=== PATIENT | female | born 1990 | race Caucasian/White ===

== ENCOUNTER 2025-04-29 19:08 | Inpatient (IN) | payer MEDICAID, OTHER ==
[~2025-04-29] VITALS: Ht 175.3 cm; Wt 104.3 kg
[2025-04-29] MEDS ORDERED: LIDOCAINE 2%HCL (LOCAL ANESTH.) INJ 20ML MDV IJ PRN (20:15)
[2025-04-29] MEDS ORDERED: NALBUPHINE HCL 10 MG/1ml INJECTION IV PRN (20:15)
[2025-04-29] MEDS: NALOXONE HCL 0.4 MG/ML VIAL IV ONE (21:00)
[2025-04-29] MEDS: ePHEDrine SULFATE 50 MG/ML AMP IV ONE (21:00)
[2025-04-29 21:03] LABS: Basophils # (auto) 0.1 10 ^3/uL (0-0.2); Basophils % (auto) 0.5 % (0.0-2.0); Eosinophils # (auto) 0.1 10 ^3/uL (0-0.8); Eosinophils % (auto) 0.4 % (0.0-7.0); Hematocrit 39.4 % (36.0-46.0); Hemoglobin 13.2 g/dL (12.2-16.2); Lymphocytes # (auto) 3.1 10 ^3/uL (0.4-5.4); Lymphocytes % (auto) 24.3 % (10.0-50.0); Mean Corpuscular Hemoglobin 29.5 pg (28.0-32.0); Mean Corpuscular Hgb Conc. 33.5 g/dL (32.0-36.0); Mean Corpuscular Volume 88.1 fL (80.0-100.0); Monocytes % (auto) 7.9 % (0.0-12.0); Neutrophils # (auto) 8.6 10 ^3/uL (1.6-8.6); Neutrophils % (auto) 66.9 % (37.0-80.0); Nucleated Red Blood Cells % 0.1 %; Platelet Count (auto) 203 10^3/uL (140-450); Red Blood Cells 4.48 10^6/uL (4.0-5.20); White Blood Cell 12.8 10^3/uL (4.4-10.8)
[2025-04-29] MEDS: DERMOPLAST 60ML BOTTLE TOP PRN (21:07)
[2025-04-29] MEDS: PHISODERM TOP SOLN 240ML BTL TOP PRN (21:07)
[2025-04-29] MEDS: WITCH HAZEL-GLYCERIN PAD TOP PRN (21:07)
[2025-04-29 21:14] LABS: Alanine Aminotransferase 15 U/L (7-40); Carbon Dioxide 22 mmol/L (20-31)
[2025-04-29 21:15] LABS: Anion Gap 11 (5-15); Aspartate Aminotransferase 12 U/L (<34); BUN/Creatinine Ratio 9.7 (10.0-20.0); Bilirubin, Total 0.4 mg/dL (0.2-1.0); Blood Urea Nitrogen 6 mg/dL (9-23); Calcium 10.7 mg/dL (8.7-10.4); Chloride 107 mmol/L (98-107); Glucose 84 mg/dL (74-106); Potassium 3.9 mmol/L (3.5-5.1); Sodium 140 mmol/L (136-145); Total Protein 6.6 g/dL (5.7-8.2)
[2025-04-29 21:22] LABS: INR 0.91 (0.9-1.15); Partial Thromboplastin Time 26.5 SEC (24.5-34.5); Prothrombin Time 9.7 sec (9.3-11.8)
[2025-04-29 21:28] LABS: Alkaline Phosphatase 184 U/L (46-116)
[2025-04-29 21:31] LABS: Urine Amorphous Crystal FEW /hpf (None Seen); Urine Bacteria FEW /hpf (None Seen); Urine Blood Negative /uL (Negative); Urine Clarity Turbid (Clear); Urine Color Light-Yellow (Yellow); Urine Protein, UAD Negative (Negative); Urine Specific Gravity 1.008 (1.001-1.035); Urine Squamous Epithelial Cell FEW /hpf (<5); Urine Urobilinogen Normal (Negative); Urine WBC 2 /HPF (0-5)
[2025-04-29] MEDS: LACTATED RINGER'S 1,000 ML IV SCH (21:40)
[2025-04-29 21:46] LABS: Amphetamine Screen, Urine Neg (NEGATIVE); Barbiturate Scree,Urine Neg (NEGATIVE); Benzodiazephine Screen, Urine Neg (NEGATIVE); Cannabinoid Screen, Urine Neg (NEGATIVE); Cocaine Screen, Urine Neg (NEGATIVE); Opiate Scree,Urine Neg (NEGATIVE); Phencyclidine Screen, Urine Neg (NEGATIVE)
[2025-04-30] MEDS ORDERED: METHYLERGONOVINE MALEATE 0.2 MG/ML AMP IM PRN (00:15)
[2025-04-30] MEDS: LACT. RINGERS/OXYTOCIN 20UNITS 500 ML IV ONE ×2 (01:26→01:27)
[2025-04-30] MEDS: ROPIVACAINE HCL 200 ML ONE (01:29)
[2025-04-30] MEDS ORDERED: ONDANSETRON ODT 4 MG TAB PO PRN (01:30)
[2025-04-30 03:30] VITALS: BP 121/70; PULSE 91; RESP 16; TEMP 98.6; O2SAT 95
[2025-04-30] MEDS: IBUPROFEN 600 MG TAB PO PRN (03:44)
--- NOTE | 2025-04-30 05:44 | DVHHP2 ---
OB CC & HPI Patient Identification: : 3 Para: 1 EDC: May 12, 2025 EGA: 38+ Chief Complaints: Reason for admission: active labor Past Medical History Cardiac: No pertinent Hx Pulmonary: No pertinent Hx Central Nervous System: No pertinent Hx GI: No pertinent Hx Hemotology/Oncology: No pertinent Hx Hepatobiliary: No pertinent Hx Psychiatric: No pertinent Hx Musculoskeletal: No pertinent Hx Rheumotologic: No pertinent Hx Infectious Disease: No peritnent Hx ENT: No pertinent Hx Renal/: No pertinent Hx Endocrine: No pertinent Hx Dermatology: No pertinent Hx OB History OB History Care: Good Care Ultrasounds: Normal mid trimester US Obstetrical Complications: None Medical Complications: None Allergies: Coded Allergies: NO KNOWN ALLERGIES (Unverified , 04/29/25) Current Medications Current Medications Medications (Trade) Dose Ordered Sig/Lizandro Route PRN Reason Start Time Stop Time Status Last Admin Lactated Ringer's 1,000 ml @ 125 mls/hr Q8H IV 04/29/25 20:15 04/29/25 21:40 Nalbuphine HCl (Nubain) 10 mg Q4HP PRN IV MODERATE PAIN (4-6 PAIN SCALE) 04/29/25 20:15 Witch Mary (Tucks) 1 pad PRN PRN TOP PERINEAL AREA DISCOMFORT 04/29/25 20:15 04/29/25 21:07 Sodium Lauryl Sulfate (Phisoderm) 240 ml PRN PRN TOP PERINEAL AREA DISCOMFORT 04/29/25 20:15 04/29/25 21:07 Benzocaine (Dermoplast) 1 applic PRN PRN TOP PERINEAL AREA DISCOMFORT 04/29/25 20:15 04/29/25 21:07 Lidocaine HCl (Xylocaine) 40 ml ONCE PRN IJ PERINEAL AREA DISCOMFORT 04/29/25 20:15 Cancel Methylergonovine Maleate (Methergine) 0.2 mg Q8HP PRN IM POST HEMORRHAGE 04/30/25 00:15 05/02/25 00:14 Cancel Ibuprofen (Motrin Tablet) 600 mg Q6HP PRN PO MODERATE PAIN (4-6 PAIN SCALE) 04/30/25 01:30 04/30/25 03:44 Acetaminophen (Tylenol Tablet) 650 mg Q4HP PRN PO MILD PAIN (1-3 PAIN SCALE) 04/30/25 01:30 Ondansetron HCl (Zofran Po) 4 mg Q4HPRN PRN PO NAUSEA / VOMITING 04/30/25 01:30 Family & Social History Family/Social History Blood Type: O+ Rubella: immune RPR/VDRL: Negative GBS Status: Negative HBsAG: Negative Review of Systems Constitutional: No symptom reported Ears, Nose, & Throat: No symptom reported Eyes: No symptom reported Pulmonary/Respiratory: No symptom reported Cardiovascular: No symptom reported Gastrointestinal: No symptom reported Genitourinary: No symptom reported Musculoskeletal: No symptom reported Skin: No symptom reported Psychiatric: No symptom reported Endocrine: No symptom reported Hemotologic/Lymphatic: No symptom reported OB Admission Exam Physical Exam Vitals: Vital Signs Date Time Temp Pulse Resp B/P (MAP) Pulse Ox O2 Delivery O2 Flow Rate FiO2 04/30/25 03:45 Room Air 04/30/25 03:44 98.1 04/30/25 03:30 91 16 121/70 (87) 95 Abdomen: Gravid Extremities: Normal Reflexes: Normal Cervical Dilatation: 4cm Effacement: 75% Station: 0 Membranes: Intact Amniotic Fluid: Clear Heart Rate: 140's Accelerations: Accelerations Present Short Term Variability: Present Correspondence Transcriber Variability: Average (6-25) Contractions on Admission: < 5 Minutes Apart Intensity: Firm OB Plan Plan Admitting Diagnosis: Onset of Labor BRENDON CAMACHO DO Apr 30, 2025 05:44
--- NOTE | 2025-04-30 05:46 | LDN2 ---
Labor and Delivery Note Date 04/30/25 Age 34 3 Para 1 AB 1 EDC 05/12/2025 EGA 38+ Diagnosis Labor Vaginal Delivery: VTX Vacuum Assisted: No Placenta: Spontaneous Sex: Male Weight 7lbs 10 oz Apgars 8/9 Nuchal Cord Present: No Nuchal Cord Transected: No Amniotic Fluid: Clear Anesthesia Amaro CHIEF TECHNICIAN Epidura Episiotomy: No Extension: No Lacerations: No EBL 300cc Complications none Conditions good Trailer Chief none present BRENDON CAMACHO DO Apr 30, 2025 05:46
[2025-04-30 07:15] VITALS: BP 125/80; PULSE 79; RESP 15; TEMP 97.7; O2SAT 96
[2025-04-30 11:00] VITALS: BP 108/63; PULSE 81; RESP 18; TEMP 98.2; O2SAT 95
[2025-04-30 15:00] VITALS: BP 128/66; PULSE 79; RESP 14; TEMP 97.8; O2SAT 95
[2025-04-30 19:00] VITALS: BP 113/67; PULSE 86; RESP 18; TEMP 97.7; O2SAT 97
[2025-04-30] MEDS: ACETAMINOPHEN 325 MG TAB PO PRN (19:42)
[2025-04-30 22:58] VITALS: BP 122/67; PULSE 73; RESP 16; TEMP 97.9; O2SAT 96
[2025-04-30] MEDS ORDERED: PREN-96 PO (23:33)
[2025-04-30] MEDS ORDERED: DOCU-94 PO (23:33)
[2025-04-30] MEDS ORDERED: IBUP-1456 PO (23:33)
--- NOTE | 2025-05-01 00:28 | DVHPN2 ---
Progress Note Date Seen: May 01, 2025 Subjective S: bleeding is less, eating food without issues, denies lightheaded/dizziness, pain well controlled with oral medications, no concerns with urinating, passing flatus, no BM yet, ambulating well, well vital signs Vital Sign Date Time Temp Pulse Resp B/P (MAP) Pulse Ox O2 Delivery O2 Flow Rate FiO2 04/30/25 22:58 97.9 73 16 122/67 (85) 96 97.9 04/30/25 19:00 Room Air medications Current Medications Medications Dose Ordered Sig/Lizandro Route Start Time Stop Time Status Last Admin Dose Admin Eloy Delgadoel 1 pad PRN PRN TOP 04/29/25 20:15 04/29/25 21:07 1 PAD Sodium Lauryl Sulfate 240 ml PRN PRN TOP 04/29/25 20:15 04/29/25 21:07 240 ML Benzocaine 1 applic PRN PRN TOP 04/29/25 20:15 04/29/25 21:07 1 APPLIC Lidocaine HCl 40 ml ONCE PRN IJ 04/29/25 20:15 Cancel Methylergonovine Maleate 0.2 mg Q8HP PRN IM 04/30/25 00:15 05/02/25 00:14 Cancel Ibuprofen 600 mg Q6HP PRN PO 04/30/25 01:30 04/30/25 13:17 600 MG Acetaminophen 650 mg Q4HP PRN PO 04/30/25 01:30 04/30/25 19:42 650 MG Ondansetron HCl 4 mg Q4HPRN PRN PO 04/30/25 01:30 laboratory and microbiology Laboratory Tests 04/29/25 20:30 Test 04/29/25 20:30 Range/Units Serum Glucose 84 74-106 mg/dL Objective O: VSS Chest: heart sounds normal and lung sounds clear bilaterally Abd: soft, non-tender, fundus at U/firm/midline, active bowel sounds, no rebound or guarding Perineum: intact, no erythema/edema noted Ext: Non-tender, No edema Lochia: minimal See lab results Problems(with codes): (1) (normal spontaneous vaginal delivery) (2) Precipitous drop in hematocrit Assessment/Plan A: 34yo now PPD#1 s/p Rh+ Rubella non-immune Pain control with PO medications Bowel regimen P: D/C home today Rx sent to pharmacy MMR ordered precautions and preeclampsia warning signs reviewed F/U with [facility] office in 2 weeks Plan discussed with: Patient Visit Coding OBGYN Date of Service: May 01, 2025 Billing Provider: OTONIEL MELVIN CNM SENIOR CONSTRUCTION ESTIMATOR Common Visit Codes: [id number] INP/OBS CARE(LOW) AARON LEE STUDENTMDW May 01, 2025 00:28
--- NOTE | 2025-05-01 01:02 | DVHDS2 ---
Obstetrics Discharge Summary Obstetrics Discharge Summary Date of Admission: Apr 29, 2025 Date of Discharge: May 01, 2025 Reason For Admission: Onset of Labor Procedures: NST Intrapartum Procedures: Spontaneous vaginal deliv Procedures: Hct/date: (05/01/25), Hgb/date: (05/01/25) Operative Complicat: None Discharge Diagnosis: Term -Delivered Discharge Information: Activity (as tolerated, no heavy lifting and nothing in the vagina for 6 weeks), Diet (Routine), Medications (Rx sent), Instructions (Routine), Discharge to (Home), Accompanied by (partner), Discarge date (05/01/25) Visit Coding OBGYN Date of Service: May 01, 2025 Billing Provider: OTONIEL MELVIN CNM CORRECTIONS OFFICER Common Visit Codes: 35480-KPX/OBS DISCH DAY <30MIN AARON LEE STUDENTMDW May 01, 2025 01:01
[2025-05-01 03:10] VITALS: BP 114/67; PULSE 77; RESP 16; TEMP 98; O2SAT 96
[2025-05-01] MEDS: MEASLES, MUMPS & RUBELLA VAC(MMRII) 0.5ML SC ONE (07:00)
[2025-05-01] MEDS: DOCUSATE SOD 100 MG CAP PO ONE (07:00)
[2025-05-01 07:13] LABS: Basophils # (auto) 0.1 10 ^3/uL (0-0.2); Basophils % (auto) 0.7 % (0.0-2.0); Eosinophils # (auto) 0.1 10 ^3/uL (0-0.8); Eosinophils % (auto) 1.1 % (0.0-7.0); Hematocrit 34.8 % (36.0-46.0); Lymphocytes # (auto) 3.4 10 ^3/uL (0.4-5.4); Lymphocytes % (auto) 32.7 % (10.0-50.0); Mean Corpuscular Hemoglobin 29.9 pg (28.0-32.0); Mean Corpuscular Hgb Conc. 34.4 g/dL (32.0-36.0); Monocytes # (auto) 0.7 10 ^3/uL (0-1.3); Monocytes % (auto) 6.9 % (0.0-12.0); Neutrophils # (auto) 6.2 10 ^3/uL (1.6-8.6); Neutrophils % (auto) 58.6 % (37.0-80.0); Platelet Count (auto) 175 10^3/uL (140-450); White Blood Cell 10.5 10^3/uL (4.4-10.8)
[2025-05-01 07:23] VITALS: BP 112/78; PULSE 72; RESP 15; TEMP 98.4; O2SAT 100
== END 2025-05-01 10:50 | disposition home or self-care (01) | DRG 560 ==
LOC: LDRP 19:08 → OBSVTOIN 20:05 → EDBD 20:05 → LDRP 20:06
PROVIDERS: ADMIT Obstetrics & Gynecology; ATTEND Obstetrics & Gynecology
PROC: 10E0XZZ Delivery of Products of Conception, External Approach (ICD-10-PCS; principal; 2025-04-30)
PROC: 3E0S3BZ Introduction of Anesthetic Agent into Epidural Space, Percutaneous Approach (ICD-10-PCS; 2025-04-30)
PROC: 00HU33Z Insertion of Infusion Device into Spinal Canal, Percutaneous Approach (ICD-10-PCS; 2025-04-30)
DX: O80 Encounter for full-term uncomplicated delivery (principal); Z37.0 Single live birth; R71.0 Precipitous drop in hematocrit; Z23 Encounter for immunization; Z3A.38 38 weeks gestation of pregnancy
CPT/HCPCS: 36415; 59025; 59409; 62282; 80053; 80307; 81001; 81002; 85025; 85610; 85730; 86780; 86850; 86900; 86901; 94760; 94762; 96360; 96361; 96365; 96366; G0378; J2590

== ENCOUNTER 2025-10-29 09:35 | Inpatient (IN) | payer BC, MEDICAID ==
[~2025-10-29] VITALS: Ht 175.3 cm; Wt 100.0 kg
[~2025-10-29 09:35] MED LIST: DOCU-94 PO; IBUP-1456 PO; PREN-96 PO
--- NOTE | 2025-10-29 10:20 | ED.PDOC ---
GI ASSESSMENT HPI Comments 34-year-old female who presents to the ED with a chief complaint of blood in stool onset 1 week. Patient states she has been experiencing blood in stool with blood clots for the past week as well as epigastric pain. She is also experiencing fatigue, nausea. Denies fever, chills, vomiting, hematemesis, diarrhea, constipation, melena, dizziness, headache, chest pain, shortness of breath, dysuria, hematuria. No other symptoms or modifying factors present at this time. Chief Complaint: GI Bleed Time Seen by MD: 10:00 Reviewed Notes: Medications, Allergies Allergies: Coded Allergies: NO KNOWN ALLERGIES (Unverified , 04/29/25) Home Meds Active Scripts Vit W/ Ferrous Fumara ( One Daily) Daily Tab, 1 TAB PO DAILY, #90 TAB 3 Refills Prov:OTONIEL MELVIN [facility] 04/30/25 Docusate Sodium (Colace) 100 Mg Cap, 1 CAP PO BID PRN, #60 CAP 2 Refills Prov:OTONIEL MELVIN [facility] 04/30/25 Ibuprofen (Ibuprofen) 800 Mg Tab, 1 TAB PO TID PRN, #30 TAB Prov:CARLOSOTONIEL JOHNSON [facility] 04/30/25 Information Source: Patient Mode of Arrival: Ambulatory Timing: Weeks Duration: Since onset Prehospital treatment: None Quality: Sharp Vomitus: None Stool: Blood Streaked Severity: Moderate Recent: None Recent Hx of: None Pain Location: Epigastric Modifying Factors: Nothing Associated sign and symptoms: Nausea, Abdominal Pain, Blood in Stool Past Medical History PAST MEDICAL HISTORY: Denies Surgical History: Denies all surgeries SENIOR GRAPHIC DESIGNER History: No Pertinent SENIOR GRAPHIC DESIGNER History Family History Family History: Reviewed,noncontributory to illness, No family hx of Cancer, No family hx of DM, No family hx of Heart caden, No family hx of HTN, No family hx ofKidney caden, No family hx of Liver caden, No family hx of Lung caden, No family hx of Stroke Social History Smoker: Non-Smoker Alcohol: Denies ETOH Use Drugs: Denies Drug Use Lives In: Home Constitutional: reports: fatigue; denies: chills, diaphoresis, fever, malaise, sweats, weakness, others EENTM: denies: blurred vision, double vision, ear bleeding, ear discharge, ear drainage, ear pain, ear ringing, eye pain, eye redness, hearing loss, mouth pain, mouth swelling, nasal discharge, nose bleeding, nose congestion, nose pain, photophobia, tearing, throat pain, throat swelling, voice changes, others Respiratory: denies: cough, hemoptysis, orthopnea, SOB at rest, shortness of breath, SOB with excertion, stridor, wheezing, others Cardiovascular: denies: chest pain, dizzy spells, diaphoresis, Dyspnea on exertion, edema, irregular heart beat, left arm pain, lightheadedness, palpitations, PND, syncope, others Gastrointestinal: reports: abdominal pain, nausea, rectal bleeding; denies: abdomen distended, blood streaked bowels, constipated, diarrhea, dysphagia, difficulty swallowing, hematemesis, melena, poor appetite, poor fluid intake, rectal pain, vomiting, others Genitourinary: denies: abnormal vagina bleeding, burning, dyspareunia, dysuria, flank pain, frequency, hematuria, incontinence, pain, , vagina discharge, urgency, others Neurological: denies: dizziness, fainting, headache, left sided numbness, left sided weakness, numbness, paresthesia, pre-existing deficit, right sided numbness, right sided weakness, seizure, speech problems, tingling, tremors, weakness, others Musculoskeletal: denies: back pain, gout, joint pain, joint swelling, muscle pain, muscle stiffness, neck pain, others Integumetry: denies: bruises, change in color, change in hair/nails, dryness, laceration, lesions, lumps, rash, wounds, others Allergic/Immunocompromised: denies: Difficulty Healing, Frequent Infections, Hives, Itching, others Hematologic/Lymphatic: denies: anemia, blood clots, easy bleeding, easy bruising, swollen glands, others Endocrine: denies: excessive hunger, excessive sweating, excessive thirst, excessive urination, flushing, intolerance to cold, intolerance to heat, unexplained weight gain, unexplained weight loss, others Psychiatric: denies: anxiety, bipolar disorder, depression, hopeless, panic disorder, schizophrenia, sleepless, suicidal, others All Other Systems: Reviewed and Negative Physical Exam General Appearance: Normal HEENT: Normal ENT Inspection, Pharynx Normal, TMs Normal Neck: Full Range of Motion, Non-Tender, Normal, Normal Inspection Respiratory: Chest Non-Tender, Lungs Clear, No Accessory Muscle Use, No Respiratory Distress, Normal Breath Sounds Cardiovascular: No Edema, No JVD, No Murmur, No Gallop, Normal Peripheral Pulses, Regular Rate/Rhythm Breast Exam: Deferred Gastrointestinal: Epigastric (tenderness), No Organomegaly, Normal Bowel Sounds, Tenderness (epigastric) Genitalia: Deferred Pelvic: Deferred Rectal: Deferred Extremities: No calf tenderness, Normal capillary refill, Normal inspection, Normal range of motion, Non-tender, No pedal edema Musculoskeletal : Apperance: Normal Neurologic: Alert, applications project manager II-XII nml as Tested, No Motor Deficits, Normal Affect, Normal Mood, No Sensory Deficits Cerebellar Function: Normal Reflexes: Normal Skin: Dry, Normal Color, Warm Lymphatic: No Adenopathy Was a procedure done? Was a procedure done?: No GI differential Dx Differential Diagnosis: Gastroenteritis, GI hemorrhage, Stress Ulcer X-Ray, Labs, Meds, VS Vital Signs Date Time Temp Pulse Resp B/P (MAP) Pulse Ox O2 Delivery O2 Flow Rate FiO2 10/29/25 13:29 97.6 72 18 122/74 (90) 100 97.6 10/29/25 12:12 97.6 69 16 119/73 (88) 100 97.6 10/29/25 11:21 72 14 98 Room Air* 0 21 10/29/25 10:51 97.6 71 15 116/82 (93) 98 97.6 10/29/25 09:37 97.4 70 18 133/84 97 97.4 Lab Test 10/29/25 10:52 10/29/25 10:36 Range/Units Urine Color Light-yellow Yellow Urine Clarity Turbid H Clear Urine pH 7.0 5.0-9.0 Urine Specific [place] 1.017 1.001-1.035 Urine Protein Negative Negative Urine Ketones Negative Negative Urine Blood Negative Negative /uL Urine Nitrite Negative Negative Urine Bilirubin Negative Negative Urine Urobilinogen Normal Negative mg/dL Urine Leukocyte Esterase Negative Negative /uL Urine RBC 3 0 - 4 /hpf Urine Microscopic WBC 6 H 0-5 /HPF Urine Squamous Epithelial Cells Mod <5 /hpf Urine Bacteria None seen None Seen /hpf Urine Mucus Few None Seen Urine Glucose Normal Normal mg/dL Urine Test Negative Negative White Blood Count 9.5 4.4-10.8 10^3/uL Red Blood Count 4.64 4.0-5.20 10^6/uL Hemoglobin 14.0 12.2-16.2 g/dL Hematocrit 42.2 36.0-46.0 % Mean Corpuscular Volume 90.9 80.0-100.0 fL Mean Corpuscular Hemoglobin 30.2 28.0-32.0 pg Mean Corpuscular Hemoglobin Concent 33.3 32.0-36.0 g/dL Red Cell Distribution Width 13.5 11.8-14.3 % Platelet Count 267 140-450 10^3/uL Mean Platelet Volume 8.2 6.9-10.8 fL Neutrophils (%) (Auto) 59.8 37.0-80.0 % Lymphocytes (%) (Auto) 31.6 10.0-50.0 % Monocytes (%) (Auto) 7.1 0.0-12.0 % Eosinophils (%) (Auto) 1.0 0.0-7.0 % Basophils (%) (Auto) 0.5 0.0-2.0 % Neutrophils # (Auto) 5.7 1.6-8.6 10 ^3/uL Lymphocytes # (Auto) 3.0 0.4-5.4 10 ^3/uL Monocytes # (Auto) 0.7 0-1.3 10 ^3/uL Eosinophils # (Auto) 0.1 0-0.8 10 ^3/uL Basophils # (Auto) 0.1 0-0.2 10 ^3/uL Nucleated Red Blood Cells 0.1 % Sodium Level 140 136-145 mmol/L Potassium Level 4.1 3.5-5.1 mmol/L Chloride Level 104 98-107 mmol/L Carbon Dioxide Level 26 20-31 mmol/L Anion Gap 10 5-15 Blood Urea Nitrogen < 5 L 9-23 mg/dL Creatinine 0.66 0.550-1.02 mg/dL Glomerular Filtration Rate Calc 119 >90 mL/min BUN/Creatinine Ratio 7.6 L 10.0-20.0 Serum Glucose 84 74-106 mg/dL Calcium Level 9.7 8.7-10.4 mg/dL Current Medications Medications (Trade) Dose Ordered Sig/Lizandro Route Start Time Stop Time Status Last Admin Sodium Chloride 1,000 ml @ 1,000 mls/hr Q1H ONCE IV 10/29/25 10:30 10/29/25 11:29 DC 10/29/25 10:55 Time of 1ST Reevaluation: 10:30 Reevaluation 1ST: Unchanged Patient Education/Counseling: Diagnosis, Treatment, Prognosis Family Education/Counseling: No Family Present SEPSIS Sepsis Screen Date sepsis recognized/suspect: Oct 29, 2025 Time Sepsis recognized/suspect: 937 Recent Procedure: No On Antibiotic Therapy: No Respiratory Rate >20: No Heart Rate >90: No Temp<36 C (96.8 F) or >38.3 C: No SBP <90 or MAP <65 mmHG: No New Acute Mental Status Change: No Is the patient on CPAP, BIPAP,: No Physician Orders Ct Ab Pel With Iv Con Only (10/29/25 12:09) Vital Signs Date Time Temp Pulse Resp B/P (MAP) Pulse Ox O2 Delivery O2 Flow Rate FiO2 10/29/25 13:29 97.6 72 18 122/74 (90) 100 97.6 10/29/25 12:12 97.6 69 16 119/73 (88) 100 97.6 10/29/25 11:21 72 14 98 Room Air* 0 21 10/29/25 10:51 97.6 71 15 116/82 (93) 98 97.6 10/29/25 09:37 97.4 70 18 133/84 97 97.4 Laboratory Tests Test 10/29/25 10:36 White Blood Count 9.5 10^3/uL (4.4-10.8) Medications Medications Dose Ordered Sig/Lizandro Route Start Time Stop Time Status Last Admin Dose Admin Sodium Chloride 1,000 ml @ 1,000 mls/hr Q1H ONCE IV 10/29/25 10:30 10/29/25 11:29 DC 10/29/25 10:55 Departure 1 Departure Time of Disposition: 14:41 (Patient presented with abdominal pain that was concerning for possible appendicits, gastritis, cholecystitis, colitis, gastroenteritis, sbo, or orther possible surgical emergency. Data: 1. I ordered and reviewed the result of at least 3 labs including a CBC, BMP, and Urinalysis. 2. I independently interpreted the following tests: CT Abdomen and Pelvis is concerning for pelvic masses .Risk:This patient has a high risk of morbidity due to further diagnostic testing or treatment and may suffer from an acute abdominal process disorder. Workup reveals pelvic masses and intractable pain as well as bright red blood per rectum and patient should be admitted for further workup. and possible expert consultation. ) Impression: Primary Impression: Pelvic mass Additional Impressions: Bright red blood per rectum Intractable abdominal pain Disposition: ADMITTED INPATIENT Admit to: Med Surg Condition: Serious Critical Care Note Critical Care Time?: Yes Critical care comment: Lower GI bleed Authorized and Performed by: Noman Alcocer MD Total critical care time: Approximately 39 minutes Due to a high probability of clinically significant, life threatening deterioration, the patient required my highest level of preparedness to intervene emergently and I personally spent this critical care time directly and personally managing the patient. This critical care time included obtaining a history; examining the patient; pulse oximetry; ordering and review of studies; arranging urgent treatment with development of a management plan; evaluation of patient's response to treatment; frequent reassessment; and, discussions with other providers. This critical care time was performed to assess and manage the high probability of imminent, life-threatening deterioration that could result in multi-organ failure. It was exclusive of separately billable procedures and treating other patients and teaching time. Please see my other sections and the rest of the note for further information on patient assessment and treatment. Stability Stability form required: No Heart Score Heart Score: Heart Score Response (Comments) Value History N/A 0 EKG N/A 0 Age N/A 0 Risk Factors N/A 0 Troponin N/A 0 Total 0 I personally scribed for NOMAN ALCOCER MD ([email or web address]) on 10/29/25 at 10:20. Electronically submitted by Zehra Epps ([email or web address]). NOMAN ALCOCER MD Oct 29, 2025 10:20
[2025-10-29 10:47] LABS: Hematocrit 42.2 % (36.0-46.0); Hemoglobin 14.0 g/dL (12.2-16.2); Mean Corpuscular Hemoglobin 30.2 pg (28.0-32.0); Mean Corpuscular Volume 90.9 fL (80.0-100.0); Nucleated Red Blood Cells % 0.1 %
[2025-10-29 10:53] LABS: Chloride 104 mmol/L (98-107); Potassium 4.1 mmol/L (3.5-5.1); Sodium 140 mmol/L (136-145)
[2025-10-29 10:54] LABS: Anion Gap 10 (5-15); Carbon Dioxide 26 mmol/L (20-31)
[2025-10-29 10:55] LABS: Calcium 9.7 mg/dL (8.7-10.4)
[2025-10-29] MEDS: SODIUM CHLORIDE 0.9% 1,000 ML IV ONE (10:55)
[2025-10-29 10:59] LABS: Glucose 84 mg/dL (74-106)
[2025-10-29 11:00] LABS: BUN/Creatinine Ratio 7.6 (10.0-20.0); Blood Urea Nitrogen < 5 mg/dL (9-23)
[2025-10-29 11:21] VITALS: PULSE 72; RESP 14; O2SAT 98
[2025-10-29 11:41] LABS: Urine Protein, UAD Negative (Negative)
[2025-10-29] MEDS: IOHEXOL 300 MG/ML 100ML BOTTLE IJ ONE (12:31)
--- NOTE | 2025-10-29 13:42 | DVH ---
EXAM: CT CT AB PEL WITH IV CON ONLY HISTORY: gi bleed COMPARISON STUDY: None TECHNIQUE: A digital target trimmer image was obtained. During the uneventful, intravenous administration of contrast material, multislice data acquisition was obtained through the abdomen and pelvis. The data set was subsequently reconstructed into multiplanar reformats. RADIATION DOSE: CTDI vol 19.3 mGy. DLP 1158.5 mGy.cm FINDINGS: Lungs: Minimal basilar atelectasis. Liver: Unremarkable. Spleen: Unremarkable. Pancreas: Unremarkable. Gallbladder: Unremarkable. Adrenals: Unremarkable Kidneys: Unremarkable. Pelvic Viscera: There are bilateral heterogeneous fat containing adnexal masses measuring up to 6.9 cm on the left and 8.0 cm on the right. Vasculature: Unremarkable. Retroperitoneum: Unremarkable. Bowel: No bowel obstruction. The appendix is normal. Musculoskeletal: Unremarkable. Soft tissues: Unremarkable IMPRESSION: 1. Bilateral adnexal masses may reflect dermoids. MRI of the pelvis is suggested in further assessment. 2. No acute abnormality identified within the bowel. Please note, if there is persistent clinical concern for GI bleeding, CTA may be beneficial in further assessment.
[2025-10-29] MEDS ORDERED: DOCUSATE SOD 100 MG CAP PO PRN (15:45)
[2025-10-29] MEDS ORDERED: ACETAMINOPHEN 325 MG TAB PO PRN (15:45)
[2025-10-29] MEDS ORDERED: ONDANSETRON HCL 4 MG/2 ML VIAL IV PRN (15:45)
[2025-10-29] MEDS ORDERED: HYDROcodone-ACET 5/325MG TAB PO PRN (15:45)
--- NOTE | 2025-10-29 16:05 | DVHHP2 ---
History of Present Illness Reason for Visit: Bright red blood per rectum History of Present Illness Yara Pina is a 34-year-old female with no significant past medical history, who came to the hospital for bright red blood with her bowel movements. Patient states this started about 1 week ago and sometimes she has clots. Patient has complaints of intermittent epigastric pain that is worse after eating, and bilateral abdominal pain that is intermittent, sharp, and doesn't last for too long. CT scan shows possible bilateral adnexal dermoids. Patient states she did have hemorrhoids 8 years ago after having her first child, but they went away. She did recently give about 6 months ago. Denies any pain with bowel movements. Past Surgical History: None Smoke: No ALCOHOL: occassional Drugs: None Lives: with Family Domestic Violence: Neg Review of Systems Constitutional: No: Fever, Chills, Sweats, Weakness, Malaise, Other Eyes: No: Pain, Vision change, Conjunctivae inflammation, Eyelid inflammation, Other, Redness ENT: No: Ear pain, Ear discharge, Nose pain, Nose discharge, Nose congestion, Mouth pain, Mouth swelling, Throat pain, Throat swelling, Other Respiratory: No: Cough, Dry, Shortness of breath, SOB with excertion, Wheezing, Hemoptysis, Pleuritic Pain, Sputum, Wheezing, Other Cardiovascular: No: Chest Pain, Palpitations, Orthopnea, Paroxysmal Noc. Dyspnea, Edema, Lt Headedness, Other Gastrointestinal: Abdominal Pain (epigastric, and intermittent bilateral abdominal pain), Other (bright red blood per rectum); No: Nausea, Vomiting, D iarrhea, Constipation, Melena, Hematochezia Genitourinary: No Dysuria, No Frequency, No Incontinence, No Hematuria, No Retention, No Other Musculoskeletal: No: other, neck pain, shoulder pain, arm pain, back pain, hand pain, leg pain, foot pain Skin: No: Rash, Lesions, Jaundice, Bruising, Other Neurological: No: Weakness, Numbness, Incoordination, Change in speech, Confusion, Seizures, Other Allergies: Coded Allergies: NO KNOWN ALLERGIES (Unverified , 04/29/25) Medications Current Medications Medications Dose Ordered Sig/Lizandro Route Start Time Stop Time Status Last Admin Dose Admin Acetaminophen/ Hydrocodone Bitart 1 tab Q4HP PRN PO 10/29/25 15:45 UNV Ondansetron HCl 4 mg Q4HP PRN IV 10/29/25 15:45 UNV Docusate Sodium 100 mg BIDPRN PRN PO 10/29/25 15:45 UNV Exam Vital Signs Vital Signs Date Time Temp Pulse Resp B/P (MAP) Pulse Ox O2 Delivery O2 Flow Rate FiO2 10/29/25 13:29 97.6 72 18 122/74 (90) 100 97.6 10/29/25 11:21 Room Air* 0 21 General Appearance: Alert, Oriented X3, Cooperative HEENT: Atraumatic, PERRLA, Mucous membr. moist/pink Respiratory: Clear to auscultation, Normal air movement Cardiovascular: Regular rate, Normal S1, Normal S2 Abdominal: Normal bowel sounds, Soft, Other (epigastric tenderness) Extremities: No clubbing, No cyanosis, No edema, Normal pulses, No tenderness/swelling Skin: No rashes, No breakdown, No significant lesion Neuro: Normal gait, Normal speech, Strength at 5/5 X4 ext Psych/Mental Status: Mental status NL, Mood NL Labs/Xrays Labs Test 10/29/25 10:52 10/29/25 10:36 Range/Units Urine Color Light-yellow Yellow Urine Clarity Turbid H Clear Urine pH 7.0 5.0-9.0 Urine Specific [place] 1.017 1.001-1.035 Urine Protein Negative Negative Urine Ketones Negative Negative Urine Blood Negative Negative /uL Urine Nitrite Negative Negative Urine Bilirubin Negative Negative Urine Urobilinogen Normal Negative mg/dL Urine Leukocyte Esterase Negative Negative /uL Urine RBC 3 0 - 4 /hpf Urine Microscopic WBC 6 H 0-5 /HPF Urine Squamous Epithelial Cells Mod <5 /hpf Urine Bacteria None seen None Seen /hpf Urine Mucus Few None Seen Urine Glucose Normal Normal mg/dL Urine Test Negative Negative White Blood Count 9.5 4.4-10.8 10^3/uL Red Blood Count 4.64 4.0-5.20 10^6/uL Hemoglobin 14.0 12.2-16.2 g/dL Hematocrit 42.2 36.0-46.0 % Mean Corpuscular Volume 90.9 80.0-100.0 fL Mean Corpuscular Hemoglobin 30.2 28.0-32.0 pg Mean Corpuscular Hemoglobin Concent 33.3 32.0-36.0 g/dL Red Cell Distribution Width 13.5 11.8-14.3 % Platelet Count 267 140-450 10^3/uL Mean Platelet Volume 8.2 6.9-10.8 fL Neutrophils (%) (Auto) 59.8 37.0-80.0 % Lymphocytes (%) (Auto) 31.6 10.0-50.0 % Monocytes (%) (Auto) 7.1 0.0-12.0 % Eosinophils (%) (Auto) 1.0 0.0-7.0 % Basophils (%) (Auto) 0.5 0.0-2.0 % Neutrophils # (Auto) 5.7 1.6-8.6 10 ^3/uL Lymphocytes # (Auto) 3.0 0.4-5.4 10 ^3/uL Monocytes # (Auto) 0.7 0-1.3 10 ^3/uL Eosinophils # (Auto) 0.1 0-0.8 10 ^3/uL Basophils # (Auto) 0.1 0-0.2 10 ^3/uL Nucleated Red Blood Cells 0.1 % Sodium Level 140 136-145 mmol/L Potassium Level 4.1 3.5-5.1 mmol/L Chloride Level 104 98-107 mmol/L Carbon Dioxide Level 26 20-31 mmol/L Anion Gap 10 5-15 Blood Urea Nitrogen < 5 L 9-23 mg/dL Creatinine 0.66 0.550-1.02 mg/dL Glomerular Filtration Rate Calc 119 >90 mL/min BUN/Creatinine Ratio 7.6 L 10.0-20.0 Serum Glucose 84 74-106 mg/dL Calcium Level 9.7 8.7-10.4 mg/dL EXAM: CT CT AB PEL WITH IV CON ONLY FINDINGS: Lungs: Minimal basilar atelectasis. Liver: Unremarkable. Spleen: Unremarkable. Pancreas: Unremarkable. Gallbladder: Unremarkable. Adrenals: Unremarkable Kidneys: Unremarkable. Pelvic Viscera: There are bilateral heterogeneous fat containing adnexal masses measuring up to 6.9 cm on the left and 8.0 cm on the right. Vasculature: Unremarkable. Retroperitoneum: Unremarkable. Bowel: No bowel obstruction. The appendix is normal. Musculoskeletal: Unremarkable. Soft tissues: Unremarkable IMPRESSION: 1. Bilateral adnexal masses may reflect dermoids. MRI of the pelvis is suggested in further assessment. 2. No acute abnormality identified within the bowel. Please note, if there is persistent clinical concern for GI bleeding, CTA may be beneficial in further assessment. SEPSIS Sepsis Screen Date sepsis recognized/suspect: Oct 29, 2025 Time Sepsis recognized/suspect: 937 Recent Procedure: No On Antibiotic Therapy: No Respiratory Rate >20: No Heart Rate >90: No Temp<36 C (96.8 F) or >38.3 C: No SBP <90 or MAP <65 mmHG: No New Acute Mental Status Change: No Is the patient on CPAP, BIPAP,: No Physician Orders Ct Ab Pel With Iv Con Only (10/29/25 12:09) Admit (10/29/25 15:40) Code Status (10/29/25 15:40) Hydrocodone-Acet 5/325mg Tab ([place] 5/32 (10/29/25 15:45) Ondansetron Hcl (Zofran) (10/29/25 15:45) Docusate Sodium Capsule (Colace Capsule) (10/29/25 15:45) Complete Blood Count (10/30/25 04:00) Comprehensive Metabolic Panel (10/30/25 04:00) Condition: Serious (10/29/25 15:40) Acetaminophen Tablet (Tylenol Tablet) (10/29/25 15:45) Clear Liq Diet (10/29/25 Dinner) * Gi Dvh Auto Dismantler (10/29/25 15:40) Stool Occult Blood (10/29/25 15:40) Vital Signs Date Time Temp Pulse Resp B/P (MAP) Pulse Ox O2 Delivery O2 Flow Rate FiO2 10/29/25 13:29 97.6 72 18 122/74 (90) 100 97.6 10/29/25 12:12 97.6 69 16 119/73 (88) 100 97.6 10/29/25 11:21 72 14 98 Room Air* 0 21 10/29/25 10:51 97.6 71 15 116/82 (93) 98 97.6 10/29/25 09:37 97.4 70 18 133/84 97 97.4 Laboratory Tests Test 10/29/25 10:36 White Blood Count 9.5 10^3/uL (4.4-10.8) Medications Medications Dose Ordered Sig/Lizandro Route Start Time Stop Time Status Last Admin Dose Admin Sodium Chloride 1,000 ml @ 1,000 mls/hr Q1H ONCE IV 10/29/25 10:30 10/29/25 11:29 DC 10/29/25 10:55 1,000 MLS/HR Assessment/Plan Assessment/Plan Assessment: Bright red blood per rectum, GI Bleed, Possible bilateral adnexal dermoids, Possible hemorrhoids, Plan: Admit to Med-Surg, GI consult, Stool occult blood, IV hydration, Consider MRI of abdomen, Clear liquid diet, Plan discussed with: Patient My Orders Orders - ELOY JOSUE Procedure Category Date Status Time Admit ADMIT 10/29/25 Transmitted 15:40 Code Status CODE 10/29/25 Transmitted 15:40 Hydrocodone-Acet PHA 10/29/25 Transmitted 5/325mg Tab ([place] 15:45 Ondansetron Hcl PHA 10/29/25 Transmitted (Zofran) 15:45 Docusate Sodium PHA 10/29/25 Transmitted Capsule (Colace 15:45 Complete Blood Count LAB 10/30/25 Verified 04:00 Comprehensive LAB 10/30/25 Verified Metabolic Panel 04:00 Condition: Serious BESSIE 10/29/25 Transmitted 15:40 Acetaminophen Tablet PHA 10/29/25 Transmitted (Tylenol Tablet) 15:45 Clear Liq Diet DIET 10/29/25 Transmitted Dinner * Gi Dvh Auto Dismantler CONS 10/29/25 Transmitted 15:40 Stool Occult Blood LAB 10/29/25 Transmitted 15:40 Date of Service: Oct 29, 2025 Billing Provider: ELOY JOSUE Common Visit Codes: 58196-[id number] INP/OBS CARE (MOD) ELOY JOSUE Oct 29, 2025 16:04
[2025-10-29 18:00] VITALS: BP 114/73; PULSE 69; RESP 17; TEMP 97.5; O2SAT 99
[2025-10-29 18:47] VITALS: BP 118/76; PULSE 62; RESP 16; TEMP 97.6; O2SAT 99
[2025-10-29 20:00] VITALS: RESP 16
[2025-10-29] MEDS: CALCIUM CARB 500 MG CHEW TAB PO ONE (20:43)
[2025-10-30] VITALS (7 sets, daily range): BP systolic 102–113; BP diastolic 62–78; PULSE 65–76; RESP 16–18; TEMP 97.8–98.8; O2SAT 92–98
[2025-10-30 06:01] LABS: Hematocrit 40.5 % (36.0-46.0); Hemoglobin 13.7 g/dL (12.2-16.2); Mean Corpuscular Hemoglobin 30.6 pg (28.0-32.0); Mean Corpuscular Volume 90.5 fL (80.0-100.0); Nucleated Red Blood Cells % 0.2 %
[2025-10-30 06:37] LABS: Alanine Aminotransferase 32 U/L (7-40); Albumin 4.0 g/dL (3.2-4.8); Alkaline Phosphatase 91 U/L (46-116); Anion Gap 11 (5-15); BUN/Creatinine Ratio 9.8 (10.0-20.0); Bilirubin, Total 0.4 mg/dL (0.2-1.0); Blood Urea Nitrogen < 5 mg/dL (9-23); Calcium 9.3 mg/dL (8.7-10.4); Carbon Dioxide 25 mmol/L (20-31); Chloride 104 mmol/L (98-107); Glucose 85 mg/dL (74-106); Potassium 3.8 mmol/L (3.5-5.1); Sodium 140 mmol/L (136-145); Total Protein 6.8 g/dL (5.7-8.2)
[2025-10-30] MEDS: PANTOPRAZOLE 40 MG/10 ML VIAL INJ IV SCH (09:46)
--- NOTE | 2025-10-30 13:28 | DVHINCON2 ---
GI Consult Consult Note GI consult note Date of Consultation: 10/30/2025 Chief Complaint: Bright red blood per rectum GI bleed Referring Physician: Renetta WARREN H&P: 34-year-old female admitted with red blood rectally, on Tuesday and Tuesday, only with bowel movements, with blood in the toilet bowl and when wiping. No bleeding at this time. Denies any melena. Patient had similar episode about a week ago. No abdominal pain at this time. Patient has history of hemorrhoids in past. Denies rectal pain at this time. No colonoscopy in past Past Medical History: None Past Surgical History: Denies Social History: NO smoking, drinking ETOH and use of illegal drugs. Family History: Noncontributory Review of Systems: Constitutional: no fever, chill, weight loss HEENT: no eye pain, no hearing loss, no oral lesion, no scleral icterus Heart: no chest pain, no chest pressure Lung: no cough, no dyspnea with exertion Abdomen: see HPI Physical exam: General: NAD, AAOX3 Chest: lung [place]wood clear to auscultation Heart: RRR, no murmur Abdomen: non-distended, no tenderness to palpation, +BS Labs: Labs Test 10/30/25 04:45 10/29/25 10:52 Range/Units White Blood Count 10.2 4.4-10.8 10^3/uL Red Blood Count 4.48 4.0-5.20 10^6/uL Hemoglobin 13.7 12.2-16.2 g/dL Hematocrit 40.5 36.0-46.0 % Mean Corpuscular Volume 90.5 80.0-100.0 fL Mean Corpuscular Hemoglobin 30.6 28.0-32.0 pg Mean Corpuscular Hemoglobin Concent 33.8 32.0-36.0 g/dL Red Cell Distribution Width 12.8 11.8-14.3 % Platelet Count 261 140-450 10^3/uL Mean Platelet Volume 8.6 6.9-10.8 fL Neutrophils (%) (Auto) 59.0 37.0-80.0 % Lymphocytes (%) (Auto) 32.0 10.0-50.0 % Monocytes (%) (Auto) 6.9 0.0-12.0 % Eosinophils (%) (Auto) 1.5 0.0-7.0 % Basophils (%) (Auto) 0.6 0.0-2.0 % Neutrophils # (Auto) 6.0 1.6-8.6 10 ^3/uL Lymphocytes # (Auto) 3.3 0.4-5.4 10 ^3/uL Monocytes # (Auto) 0.7 0-1.3 10 ^3/uL Eosinophils # (Auto) 0.2 0-0.8 10 ^3/uL Basophils # (Auto) 0.1 0-0.2 10 ^3/uL Nucleated Red Blood Cells 0.2 % Sodium Level 140 136-145 mmol/L Potassium Level 3.8 3.5-5.1 mmol/L Chloride Level 104 98-107 mmol/L Carbon Dioxide Level 25 20-31 mmol/L Anion Gap 11 5-15 Blood Urea Nitrogen < 5 L 9-23 mg/dL Creatinine 0.51 L 0.550-1.02 mg/dL Glomerular Filtration Rate Calc 126 >90 mL/min BUN/Creatinine Ratio 9.8 L 10.0-20.0 Serum Glucose 85 74-106 mg/dL Calcium Level 9.3 8.7-10.4 mg/dL Total Bilirubin 0.4 0.2-1.0 mg/dL Aspartate Amino Transferase (AST) 17 13-40 U/L Alanine Aminotransferase (ALT) 32 7-40 U/L Alkaline Phosphatase 91 46-116 U/L Total Protein 6.8 5.7-8.2 g/dL Albumin 4.0 3.2-4.8 g/dL Lipase 33 12-53 U/L Vitamin B12 Level 468 211-911 pg/mL Vitamin D 25-Hydroxy 23.3 L 30.0-100 ng/mL Thyroid Stimulating Hormone (TSH) 3.47 0.55-4.78 uIU/mL Urine Color Light-yellow Yellow Urine Clarity Turbid H Clear Urine pH 7.0 5.0-9.0 Urine Specific [place] 1.017 1.001-1.035 Urine Protein Negative Negative Urine Ketones Negative Negative Urine Blood Negative Negative /uL Urine Nitrite Negative Negative Urine Bilirubin Negative Negative Urine Urobilinogen Normal Negative mg/dL Urine Leukocyte Esterase Negative Negative /uL Urine RBC 3 0 - 4 /hpf Urine Microscopic WBC 6 H 0-5 /HPF Urine Squamous Epithelial Cells Mod <5 /hpf Urine Bacteria None seen None Seen /hpf Urine Mucus Few None Seen Urine Glucose Normal Normal mg/dL Urine Test Negative Negative Imaging: CT abdomen pelvis IMPRESSION: 1. Bilateral adnexal masses may reflect dermoids. MRI of the pelvis is suggested in further assessment. 2. No acute abnormality identified within the bowel. Please note, if there is persistent clinical concern for GI bleeding, CTA may be beneficial in further assessment. Assessment: GI bleed History of hemorrhoids Possible bilateral adnexal dermoid Plan: Discussed with Dr. Leavitt Advance diet as tolerated Protonix No GI procedures planned at this time Outpatient GI follow-up recommended for elective procedures as needed Plan discussed with patient and RN Thank you for this consult Date of Service: Oct 30, 2025 Billing Provider: HERIBERTO HERNANDEZ Common Visit Codes: CONSULT ONLY Consultation Codes: [id number] CONSULT <60MIN HERIBERTO HERNANDEZ Oct 30, 2025 13:28
[2025-10-30 13:32] LABS: Hematocrit 39.6 % (36.0-46.0); Hemoglobin 13.6 g/dL (12.2-16.2)
--- NOTE | 2025-10-30 15:21 | DVHDSRES ---
Discharge Summary Date of Admission Resident Creating Document: BINTA ROSA Oct 29, 2025 at 15:40 Date of Discharge: Oct 30, 2025 Admitting Diagnosis GI bleeding Labs/Diagnostic Data: Laboratory Results Test 10/30/25 13:20 10/30/25 04:45 10/29/25 10:52 Hemoglobin 13.6 g/dL (12.2-16.2) Hematocrit 39.6 % (36.0-46.0) White Blood Count 10.2 10^3/uL (4.4-10.8) Red Blood Count 4.48 10^6/uL (4.0-5.20) Mean Corpuscular Volume 90.5 fL (80.0-100.0) Mean Corpuscular Hemoglobin 30.6 pg (28.0-32.0) Mean Corpuscular Hemoglobin Concent 33.8 g/dL (32.0-36.0) Red Cell Distribution Width 12.8 % (11.8-14.3) Platelet Count 261 10^3/uL (140-450) Mean Platelet Volume 8.6 fL (6.9-10.8) Neutrophils (%) (Auto) 59.0 % (37.0-80.0) Lymphocytes (%) (Auto) 32.0 % (10.0-50.0) Monocytes (%) (Auto) 6.9 % (0.0-12.0) Eosinophils (%) (Auto) 1.5 % (0.0-7.0) Basophils (%) (Auto) 0.6 % (0.0-2.0) Neutrophils # (Auto) 6.0 10 ^3/uL (1.6-8.6) Lymphocytes # (Auto) 3.3 10 ^3/uL (0.4-5.4) Monocytes # (Auto) 0.7 10 ^3/uL (0-1.3) Eosinophils # (Auto) 0.2 10 ^3/uL (0-0.8) Basophils # (Auto) 0.1 10 ^3/uL (0-0.2) Nucleated Red Blood Cells 0.2 % Sodium Level 140 mmol/L (136-145) Potassium Level 3.8 mmol/L (3.5-5.1) Chloride Level 104 mmol/L (98-107) Carbon Dioxide Level 25 mmol/L (20-31) Anion Gap 11 (5-15) Blood Urea Nitrogen < 5 mg/dL (9-23) Creatinine 0.51 mg/dL (0.550-1.02) Glomerular Filtration Rate Calc 126 mL/min (>90) BUN/Creatinine Ratio 9.8 (10.0-20.0) Serum Glucose 85 mg/dL (74-106) Calcium Level 9.3 mg/dL (8.7-10.4) Total Bilirubin 0.4 mg/dL (0.2-1.0) Aspartate Amino Transferase (AST) 17 U/L (13-40) Alanine Aminotransferase (ALT) 32 U/L (7-40) Alkaline Phosphatase 91 U/L (46-116) Total Protein 6.8 g/dL (5.7-8.2) Albumin 4.0 g/dL (3.2-4.8) Lipase 33 U/L (12-53) Vitamin B12 Level 468 pg/mL (211-911) Vitamin D 25-Hydroxy 23.3 ng/mL (30.0-100) Thyroid Stimulating Hormone (TSH) 3.47 uIU/mL (0.55-4.78) Urine Color Light-yellow (Yellow) Urine Clarity Turbid (Clear) Urine pH 7.0 (5.0-9.0) Urine Specific [place] 1.017 (1.001-1.035) Urine Protein Negative (Negative) Urine Ketones Negative (Negative) Urine Blood Negative /uL (Negative) Urine Nitrite Negative (Negative) Urine Bilirubin Negative (Negative) Urine Urobilinogen Normal mg/dL (Negative) Urine Leukocyte Esterase Negative /uL (Negative) Urine RBC 3 /hpf (0 - 4) Urine Microscopic WBC 6 /HPF (0-5) Urine Squamous Epithelial Cells Mod /hpf (<5) Urine Bacteria None seen /hpf (None Seen) Urine Mucus Few (None Seen) Urine Glucose Normal mg/dL (Normal) Urine Test Negative (Negative) Other Laboratory Tests 10/30/25 13:20 10/30/25 04:45 Brief Hx & Hospital Course: HPI and brief hospital course: Ms Yara Jones, a 34-year-old female P2 with past medical history of migraines, hemorrhoids presented to the ER with a history of 2 episodes of per rectal fresh bleeding with stool. Last episode was on Tuesday, since then the patient did not have any bowel movement. She has given to a child 6 months ago, breast-feeding. She was found to have hemorrhoid during that admission. She has frequent episodes of migraines. She also reports having epigastric pain radiating to the back, no aggravating or relieving factor was identified. Lipase and abdomen pelvis CT was negative for acute pancreatitis. It revealed bilateral adnexal masses possibly dermoids. No other acute finding, no intestinal obstruction was identified. GI consult was appreciated, no GI procedure was recommended at this time. She was given IV Protonix, diet was advanced as tolerated. Hemoglobin remained stable throughout the admission. On the day of discharge patient was hemodynamically stable, all treatment plan was explained to the patient and her , they verbalized understanding of the treatment and discharge plan. They were advised to follow up outpatient with PCP and GI. Pt is lying on bed General Appearance: Alert, Oriented X3, Cooperative, Mild distress HEENT: Atraumatic, Mucous membranes moist/pink Respiratory: Clear to auscultation, Normal air movement, No added sounds Cardiovascular: Regular rate, Normal S1, Normal S2, No murmurs Abdominal/ : Active bowel sounds, Soft, no distention, no tenderness Extremities: No edema, Normal pulses, No tenderness/swelling Skin: No Significant rash, except past surgical scars Neuro: Normal speech, sensorimotor deficits none Psych/Mental Status: Mental status NL, Mood NL Nurse was there as strategic alliances manager during examination Consults/Reason for consult GI Consult reason: per rectal fresh bleeding Operations or Procedures PATIENT: YARA HERNÁNDEZ ACCT: [id number] UNIT: [id number] : 1990 LOC: ER ROOM / BED: / AGE / SEX: 34 / F ADM STATUS: REG ER SERVICE 1209 ORDERING PHYSICIAN: NOMAN ALCOCER MD PROCEDURE(s): ABPLIV - CT AB PEL WITH IV CON ONLY REASON: gi bleed ORDER NUMBER(s): [id number], ACCESSION NUMBER(s): [id number] EXAM: CT CT AB PEL WITH IV CON ONLY HISTORY: gi bleed COMPARISON STUDY: None TECHNIQUE: A digital industrial hygienist image was obtained. During the uneventful, intravenous administration of contrast material, multislice data acquisition was obtained through the abdomen and pelvis. The data set was subsequently reconstructed into multiplanar reformats. RADIATION DOSE: CTDI vol 19.3 mGy. DLP 1158.5 mGy.cm FINDINGS: Lungs: Minimal basilar atelectasis. Liver: Unremarkable. Spleen: Unremarkable. Pancreas: Unremarkable. Gallbladder: Unremarkable. Adrenals: Unremarkable Kidneys: Unremarkable. Pelvic Viscera: There are bilateral heterogeneous fat containing adnexal masses measuring up to 6.9 cm on the left and 8.0 cm on the right. Vasculature: Unremarkable. Retroperitoneum: Unremarkable. Bowel: No bowel obstruction. The appendix is normal. Musculoskeletal: Unremarkable. Soft tissues: Unremarkable IMPRESSION: 1. Bilateral adnexal masses may reflect dermoids. MRI of the pelvis is suggested in further assessment. 2. No acute abnormality identified within the bowel. Please note, if there is persistent clinical concern for GI bleeding, CTA may be beneficial in further assessment. Condition at Discharge: Stable Final Diagnosis/Problems List Per rectal bleeding due to hemorrhoids Discharge Disposition: Home Discharge Instruct/Medications Diet: Consistent carbohydrate Activity: No Restrictions, As Tolerated Follow Up/Referral: Follow up with PCP and GI specialist. Medications: As per EMR Scheduled Vit W/ Ferrous Fumara ( One Daily), 1 TAB PO DAILY Scheduled PRN Docusate Sodium (Colace), 1 CAP PO BID PRN Ibuprofen (Ibuprofen), 1 TAB PO TID PRN Discharge Statement: "Patient was advised to return to the ER or call 911 if any headaches, dizziness, shortness of breath, chest pain, abdominal pain, bleeding, fevers, or worsening of medical condition. Patient was counseled about treatment plan, medications, possible side effects, patientverbalized understanding. All questions were answered to the best of my ability. This discharge took greater then 30 minutes in planning, reviewing documentation, counseling the patient, and discussing with other team members." ASSESSMENT ASSESSMENT Assessment Per rectal bleeding due to hemorrhoids Visit Coding STANDARD RES Billing Provider: LENCHO BIGGS MD Date of Service if different f: Oct 30, 2025 Common Visit Codes: 51361-ILN/OBS DISCH DAY >30min BINTA ROSA Oct 30, 2025 15:21 LENCHO BIGGS MD Oct 31, 2025 19:56
== END 2025-10-30 17:47 | disposition home or self-care (01) | DRG 395 ==
LOC: ER 09:35 → OVERFLOW 15:40 → WEST WING 17:37
PROVIDERS: ADMIT Internal Medicine Geriatric Medicine; ATTEND Internal Medicine Geriatric Medicine
DX: K64.9 Unspecified hemorrhoids (principal); G43.909 Migraine, unspecified, not intractable, without status migrainosus
CPT/HCPCS: 36415; 74177; 80048; 80053; 81001; 81025; 82306; 82607; 83690; 84443; 85014; 85018; 85025; 96360; 99291; G0378; J2470